=== PATIENT | female | born 1970 | race Caucasian/White ===

== ENCOUNTER 2023-03-21 10:08 | Emergency (ER) | payer BC ==
[~2023-03-21] VITALS: Ht 165.1 cm; Wt 91.6 kg
[2023-03-21 10:22] VITALS: BP_SYST 128; PULSE 17; RESP 18; TEMP 98.1; O2SAT 97
[2023-03-21] MEDS ORDERED: DIPHTH,PERTUSS(ACELL),TET VAC 0.5 ML VIAL (Tdap) I.M. ONE (10:45)
[2023-03-21] MEDS ORDERED: BACITRACIN 1 GM OINT TP ONE (11:02)
[2023-03-21] MEDS ORDERED: DOXY100C5 PO (11:32)
[2023-03-21] MEDS ORDERED: HYDR-3917 PO (11:32)
[2023-03-21] MEDS ORDERED: HYDROcodone/ACETAMIN 5-325 MG TAB (NORCO/ VICODIN) PO ONE (11:45)
[2023-03-21 11:49] VITALS: BP_SYST 128; PULSE 17; RESP 18; TEMP 98.1; O2SAT 97
== END 2023-03-21 11:48 | disposition home or self-care (01) ==
LOC: SED 10:08
DX: S61.432A Puncture wound without foreign body of left hand, initial encounter (principal); Z88.5 Allergy status to narcotic agent; Z79.899 Other long term (current) drug therapy; W01.198A Fall on same level from slipping, tripping and stumbling with subsequent striking against other object, initial encounter; Y93.89 Activity, other specified; Y92.89 Other specified places as the place of occurrence of the external cause; Y99.8 Other external cause status
CPT/HCPCS: 90715; 99283